=== PATIENT | male | born 1930 ===

== ENCOUNTER 2018-03-27 16:14 | Emergency (ER) | payer MEDICARE, MEDICAID ==
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
[2018-03-27 20:59] VITALS: BP 135/90
== END 2018-03-27 20:58 | disposition home or self-care (01) ==
LOC: ED 16:14
DX: S09.90XA Unspecified injury of head, initial encounter (principal); S01.81XA Laceration without foreign body of other part of head, initial encounter; S61.212A Laceration without foreign body of right middle finger without damage to nail, initial encounter; Z87.891 Personal history of nicotine dependence; W17.89XA Other fall from one level to another, initial encounter; Y92.9 Unspecified place or not applicable; E11.9 Type 2 diabetes mellitus without complications; I10 Essential (primary) hypertension; M85.80 Other specified disorders of bone density and structure, unspecified site; M50.321 Other cervical disc degeneration at C4-C5 level; M50.31 Other cervical disc degeneration, high cervical region; F03.90 Unspecified dementia, unspecified severity, without behavioral disturbance, psychotic disturbance, mood disturbance, and anxiety; H54.8 Legal blindness, as defined in USA; Z85.46 Personal history of malignant neoplasm of prostate
CPT/HCPCS: 12001; 12011; 70450; 70486; 72125; 99281